=== PATIENT | female | born 1980 | race Caucasian/White ===

== ENCOUNTER 2017-07-30 16:57 | Emergency (ER) | payer BC ==
[2017-07-30] MEDS ORDERED: Aspirin 81 MG Tab.Chew PO ONE (17:01)
[2017-07-30] MEDS ORDERED: Ketorolac 30 MG/ML SDV IVPUSH ONE (17:01)
[2017-07-30] MEDS ORDERED: Sodium Chloride 0.9% 1,000 ML IV ONE (17:01)
--- NOTE | 2017-07-30 17:37 | EDM.PDOC ---
ED HPI GENERAL MEDICAL PROBLEM - General Chief Complaint: Cardiovascular Problem Stated Complaint: CHEST PAIN Time Seen by Provider: 07/30/17 17:15 Source of Information: Reports: Patient History Limitations: Reports: No Limitations - History of Present Illness INITIAL COMMENTS - FREE TEXT/NARRATIVE: HISTORY AND PHYSICAL: History of present illness: Patient is a 36-year-old female who presents with complaint of mid sternal chest pain. She states that her pain started approximately 3 days ago. Today, she felt some palpitations and increasing of chest pain intensity prior to arrival. Patient states that she takes Tylenol for these type of pain, the Tylenol "is not helping her". She smokes every day, and she started smoking 20 years ago. She denies any acute illness. She took her blood pressure today at home and she said it was "elevated". She rates her chest pain at 4/10. Patient states that her last menstrual cycle was 2 days ago (07/27/2017). She denies any fever, chills, coughing, shortness of breath, abdominal pain, nausea, vomiting, diarrhea or constipation. No personal history of heart disease. Review of systems: As per history of present illness and below otherwise all systems reviewed and negative. Past medical history: As per history of present illness and as reviewed below otherwise noncontributory. Surgical history: As per history of present illness and as reviewed below otherwise noncontributory. Social history: No reported history of drug or alcohol abuse. Family history: As per history of present illness and as reviewed below otherwise noncontributory. Physical exam: General: Well-developed and well-nourished 36-year-old female. Alert and oriented, not in acute distress but she is tearful. HEENT: Atraumatic, normocephalic, pupils equal and reactive bilaterally, negative for conjunctival pallor or scleral icterus, mucous membranes moist, throat clear, neck supple, nontender, trachea midline. No drooling or trismus noted. No meningeal signs Lungs: Clear to auscultation, breath sounds equal bilaterally, chest tenderness to anterior mid chest/sternum with palpation Heart: S1S2, regular rate and rhythm, tachycardia without overt murmur Abdomen: Soft, nondistended, nontender. Negative for masses or hepatosplenomegaly. Negative for costovertebral tenderness. Pelvis: Stable nontender. Genitourinary: Deferred. Rectal: Deferred. Skin: Intact, warm, dry. No lesions or rashes noted. Extremities: Atraumatic, moves all extremities per self without difficulty or deficits, negative for cords or calf pain. Neurovascular unremarkable. Neuro: Awake, alert, oriented. Cranial nerves II through XII unremarkable. Cerebellum unremarkable. Motor and sensory unremarkable throughout. Exam nonfocal. Notes: Patient has no previous history of heart disease. During our interview, she states "I know I'm not having a heart attack... I am more concerned about the lightheadness, palpitations and chest heaviness that I get when I exert myself" . She states she believes its related to her high blood pressure reading. History of DM Type 2 (but since loosing weight has been off her Metformin for 1 + year). She has had similar symptoms in the past, has had a HOLTER monitor and TSH checked multiple times. A cardiac workup will be done at this time. Her chest pain is reproducible with palpation, Toradol and be given IV. Lab work is unremarkable. CXR shows no evidence of pneumonia or infiltrate. We discussed the need for establishing care with a primary care provider as she currently does not have one here moving to we discussed that since her blood pressure is currently normal she should follow-up with them for further evaluation and management to discuss if she does need any antihypertensive medications. She should have her palpitations reevaluated as she may need a repeat Holter monitor. After her IV fluid she states she would like to be discharged to home as she feels improved. Discussed signs and symptoms that would prompt her to return to the emergency room. She is agreeable to plan of care. He denies any further questions at this time. Diagnostics: CBC, CMP, ECG, troponin, one view chest, Hgb A1C Therapeutics: NS Toradol Aspirin Impression: Nonspecific Chest Pain Plan: 1. Continue to stay well hydrated. Stop smoking. 2. Follow-up with your primary care provider as we discussed for further evaluation and management of her episodic high blood pressure. 3. Return to the ED as needed and as discussed. Definitive disposition and diagnosis as appropriate pending reevaluation and review of above. Onset: Today Upper Chest Pain Score (Numeric/FACES): 2 - Related Data Allergies Allergy/AdvReac Type Severity Reaction Status Date / Time codeine Allergy Rash Verified 07/30/17 17:05 Home Meds: Home Meds . [No Known Home Meds] 07/30/17 [History] Past Medical History - Past Health History Medical/Surgical History: Denies Medical/Surgical History Social & Family History - Tobacco Use Smoking Status *Q: Current Every Day Smoker Years of Tobacco use: 20 Packs/Tins Daily: 1 ED ROS GENERAL - Review of Systems Review Of Systems: ROS reveals no pertinent complaints other than HPI. ED EXAM, GENERAL - Physical Exam Exam: See Below (See dictation) Course - Vital Signs Last Recorded V/S: Last Vital Signs Temp 98.1 F 07/30/17 17:16 Pulse 101 H 07/30/17 19:01 Resp 16 07/30/17 19:01 BP 140/98 H 07/30/17 19:01 Pulse Ox 96 07/30/17 19:01 - Orders/Labs/Meds Orders: Active Orders 24 hr Category Date Time Status EKG Documentation Completion [RC] STAT Care 07/30/17 17:01 Active Chest 1V Frontal [CR] Stat Exams 07/30/17 17:01 Taken Labs: Laboratory Tests 07/30/17 07/30/17 07/30/17 Range/Units 17:10 17:10 17:10 WBC 6.96 (4.0-11.0) K/uL RBC 5.02 (4.30-5.90) M/uL Hgb 14.0 (12.0-16.0) g/dL Hct 42.4 (36.0-46.0) % MCV 84.5 (80.0-98.0) fL MCH 27.9 (27.0-32.0) pg MCHC 33.0 (31.0-37.0) g/dL RDW Std Deviation 43.7 (28.0-62.0) fl RDW Coeff of Gay 14 (11.0-15.0) % Plt Count 280 (150-400) K/uL MPV 9.40 (7.40-12.00) fL Neut % (Auto) 48.6 (48.0-80.0) % Lymph % (Auto) 36.8 (16.0-40.0) % [place] % (Auto) 9.1 (0.0-15.0) % Eos % (Auto) 4.6 (0.0-7.0) % Baso % (Auto) 0.9 (0.0-1.5) % Neut # (Auto) 3.4 (1.4-5.7) K/uL Lymph # (Auto) 2.6 H (0.6-2.4) K/uL [place] # (Auto) 0.6 (0.0-0.8) K/uL Eos # (Auto) 0.3 (0.0-0.7) K/uL Baso # (Auto) 0.1 (0.0-0.1) K/uL Nucleated RBC % 0.0 /100WBC Nucleated RBCs # 0 K/uL Sodium 141 (136-145) mmol/L Potassium 3.7 (3.5-5.1) mmol/L Chloride 106 (98-107) mmol/L Carbon Dioxide 29.2 (21.0-32.0) mmol/L BUN 13 (7.0-18.0) mg/dL Creatinine 1.0 (0.6-1.0) mg/dL Est Cr Clr Drug Dosing 90.61 mL/min Estimated GFR (MDRD) > 60.0 ml/min Glucose 114 H (74-106) mg/dL Hemoglobin A1c 5.5 (4.5-6.2) % Calcium 8.7 (8.5-10.1) mg/dL Total Bilirubin 0.4 (0.2-1.0) mg/dL AST 16 (15-37) IU/L ALT 23 (14-63) IU/L Alkaline Phosphatase 90 (46-116) U/L Troponin I < 0.050 (0.000-0.056) ng/mL Total Protein 7.1 (6.4-8.2) g/dL Albumin 3.5 (3.4-5.0) g/dL Globulin 3.6 H (2.0-3.5) g/dL Albumin/Globulin Ratio 1.0 L (1.3-2.8) Meds: Medications Discontinued Medications Generic Name Dose Route Start Last Admin Trade Name Freq PRN Reason Stop Dose Admin Aspirin 324 mg 07/30/17 17:01 07/30/17 17:22 Aspirin PO 07/30/17 17:02 324 mg ONETIME ONE Administration Sodium Chloride 1,000 mls @ 999 mls/hr 07/30/17 17:01 07/30/17 17:23 Normal Saline IV 07/30/17 18:01 999 mls/hr STAT ONE Administration Ketorolac Tromethamine 30 mg 07/30/17 17:01 07/30/17 17:22 Toradol IVPUSH 07/30/17 17:02 30 mg ONETIME ONE Administration Departure - Departure Time of Disposition: 18:43 Disposition: Home, Self-Care 01 Clinical Impression: Nonspecific chest pain Instructions: Nonspecific Chest Pain, [id number] Referrals: PCP,None [Primary Care Provider] - Forms: ED Department Discharge Additional Instructions: The following information is given to patients seen in the emergency department who are being discharged to home. This information is to outline your options for follow-up care. We provide all patients seen in our emergency department with a follow-up referral. The need for follow-up, as well as the timing and circumstances, are variable depending upon the specifics of your emergency department visit. If you don't have a primary care physician on staff, we will provide you with a referral. We always advise you to contact your personal physician following an emergency department visit to inform them of the circumstance of the visit and for follow-up with them and/or the need for any referrals to a consulting specialist. The emergency department will also refer you to a specialist when appropriate. This referral assures that you have the opportunity for follow-up care with a specialist. All of these measure are taken in an effort to provide you with optimal care, which includes your follow-up. Under all circumstances we always encourage you to contact your private physician who remains a resource for coordinating your care. When calling for follow-up care, please make the office aware that this follow-up is from your recent emergency room visit. If for any reason you are refused follow-up, please contact the [facility] Emergency Department at and asked to speak to the emergency department charge nurse. [facility] (Cherelle Mcgovern and/or Kimberly Pereira) [address] [place] [id number] 1. Continue to stay well hydrated. Stop smoking 2. Follow-up with your primary care provider as we discussed for further evaluation and management of her episodic high blood pressure. 3. Return to the ED as needed and as discussed. - My Orders Last 24 Hours: My Active Orders 07/30/17 17:01 EKG Documentation Completion [RC] STAT Chest 1V Frontal [CR] Stat - Assessment/Plan Last 24 Hours: My Active Orders 07/30/17 17:01 EKG Documentation Completion [RC] STAT Chest 1V Frontal [CR] Stat
[2017-07-30 17:44] LABS: CHLORIDE,CL 106 mmol/L (98-107); SODIUM,NA 141 mmol/L (136-145)
--- NOTE | 2017-08-02 09:54 | CR ---
EXAM DATE: 07/30/17 PATIENT'S AGE: 36 Patient: KARLO FAN Facility: [place], [place] Site . Site : [id number] Study: XRay Chest [id number] 5:35:44 PM Ordering Physician: Doctor Smith Final Report: HISTORY: Chest pain. FINDINGS: AP portable chest radiograph demonstrates EKG leads overlying the thorax. Cardiac silhouette is normal. Pulmonary vasculature is free of cephalization. No lobar consolidation or pleural effusion is seen. No pneumothorax. Bony structures are normal for age. IMPRESSION: No acute cardiopulmonary disease. Dictated by Dionna Oliva MD @ 07/30/2017 6:14:04 PM Dictated by: Dionna Oliva MD @ 07/30/2017 18:14:10 (Electronic Signature) Report Signed by Proxy. [facility]ITAL[facility]
== END 2017-07-30 18:59 | disposition home or self-care (01) ==
LOC: MW.ED 16:57
DX: R07.89 Other chest pain (principal); F17.210 Nicotine dependence, cigarettes, uncomplicated; Z88.5 Allergy status to narcotic agent
CPT/HCPCS: 71045; 80053; 83036; 84484; 85025; 93005; 96361; 96374; 99285; A9270; J1885; J7040; 99284

== ENCOUNTER 2018-11-16 13:27 | Emergency (ER) | payer BC ==
[2018-11-16] MEDS ORDERED: Sodium Chloride 0.9% 1,000 ML IV ONE (13:36)
--- NOTE | 2018-11-16 13:55 | EDM.PDOC ---
ED HPI GENERAL MEDICAL PROBLEM - General Chief Complaint: Cardiovascular Problem Stated Complaint: thyroid concern Time Seen by Provider: 11/16/18 13:29 Source of Information: Reports: Patient History Limitations: Reports: No Limitations - History of Present Illness INITIAL COMMENTS - FREE TEXT/NARRATIVE: HISTORY AND PHYSICAL: History of present illness: Patient is a 38-year-old female presents to the ED today with concern of dizziness over the last 2 weeks. Patient states she is not currently having dizziness stable in the past illnesses She has had a thyroid issue. Patient states she is not on thyroid medications and has not followed with the primary care provider for her thyroid. Patient denies any chest pain or shortness of breath. Patient denies any health history or any other symptoms or concerns. Patient denies fever, chills, chest pain, shortness of breath, or cough. Denies headache, neck stiff ness, change in vision, syncope, or near syncope. Denies nausea, vomiting, abdominal pain, diarrhea, constipation, or dysuria. Has not noted any blood in urine or stool. Patient has been eating and drinking appropriately. Review of systems: As per history of present illness and below otherwise all systems reviewed and negative. Past medical history: As per history of present illness and as reviewed below otherwise noncontributory. Surgical history: As per history of present illness and as reviewed below otherwise noncontributory. Social history: See social history for further information Family history: As per history of present illness and as reviewed below otherwise noncontributory. Physical exam: General: Patient is alert, oriented, and in no acute distress. Patient laying comfortably on exam table. HEENT: Atraumatic, normocephalic, pupils equal and reactive bilaterally, negative for conjunctival pallor or scleral icterus, mucous membranes moist, TMs normal bilaterally, throat clear, neck supple, nontender, trachea midline. No drooling or trismus noted. No meningeal signs. No hot potato voice noted. Lungs: Clear to auscultation, breath sounds equal bilaterally, chest nontender. Heart: S1S2, regular rate and rhythm without overt murmur Abdomen: Soft, nondistended, nontender. Negative for masses or hepatosplenomegaly. Negative for costovertebral tenderness. Pelvis: Stable nontender. Genitourinary: Deferred. Rectal: Deferred. Skin: Intact, warm, dry. No lesions or rashes noted. Extremities: Atraumatic, negative for cords or calf pain. Neurovascular unremarkable. Neuro: Awake, alert, oriented. Cranial nerves II through XII unremarkable. Cerebellum unremarkable. Motor and sensory unremarkable throughout. Exam nonfocal. Notes: Discussed the importance for follow-up with a primary care provider. Voices understanding and is agreeable to plan of care. Denies any further questions or concerns at this time. Diagnostics: CBC, CMP, UA, urine hCG, TSH, orthostatic vitals (Patient declines EKG, CXR and troponin. Discussed the risks versus benefits of this and expresses understanding) Therapeutics: NS Prescription: None Impression: Medical screening exam Plan: 1. Encourage small but frequent sips of fluid to prevent dehydration. 2. You can alternate ibuprofen and Tylenol as directed for pain and discomfort. 3. Follow up with her primary care provider as discussed. Return to the ED as needed and as discussed. Definitive disposition and diagnosis as appropriate pending reevaluation and review of above. - Related Data Allergies Allergy/AdvReac Type Severity Reaction Status Date / Time codeine Allergy Rash Verified 11/16/18 13:37 Home Meds: Home Meds . 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 ED EXAM, GENERAL - Physical Exam Exam: See Below (See dictation) Course - Vital Signs Last Recorded V/S: Last Vital Signs Temp 96.2 F 11/16/18 13:34 Pulse 141 H 11/16/18 13:34 Resp 18 11/16/18 13:34 BP 151/101 H 11/16/18 13:34 Pulse Ox 98 11/16/18 13:34 Orthostatic Blood Pressure [ 161/105 Standing] Orthostatic Blood Pressure [ 155/105 Sitting] Orthostatic Blood Pressure [ 136/86 Supine] - Orders/Labs/Meds Orders: Active Orders 24 hr Category Date Time Status EKG Documentation Completion [RC] STAT Care 11/16/18 13:36 Active Orthostatic Vital Signs [RC] ASDIRECTED Care 11/16/18 13:40 Active Labs: Laboratory Tests 11/16/18 11/16/18 11/16/18 Range/Units 13:50 13:50 14:04 WBC 8.41 (4.0-11.0) K/uL RBC 4.91 (4.30-5.90) M/uL Hgb 13.8 (12.0-16.0) g/dL Hct 42.8 (36.0-46.0) % MCV 87.2 (80.0-98.0) fL MCH 28.1 (27.0-32.0) pg MCHC 32.2 (31.0-37.0) g/dL RDW Std Deviation 47.1 (28.0-62.0) fl RDW Coeff of Gay 15 (11.0-15.0) % Plt Count 335 (150-400) K/uL MPV 9.60 (7.40-12.00) fL Neut % (Auto) 55.6 (48.0-80.0) % Lymph % (Auto) 31.5 (16.0-40.0) % [place] % (Auto) 8.3 (0.0-15.0) % Eos % (Auto) 3.6 (0.0-7.0) % Baso % (Auto) 1.0 (0.0-1.5) % Neut # (Auto) 4.7 (1.4-5.7) K/uL Lymph # (Auto) 2.7 H (0.6-2.4) K/uL [place] # (Auto) 0.7 (0.0-0.8) K/uL Eos # (Auto) 0.3 (0.0-0.7) K/uL Baso # (Auto) 0.1 (0.0-0.1) K/uL Nucleated RBC % 0.0 /100WBC Nucleated RBCs # 0 K/uL Sodium 141 (136-145) mmol/L Potassium 3.9 (3.5-5.1) mmol/L Chloride 104 (98-107) mmol/L Carbon Dioxide 28.6 (21.0-32.0) mmol/L BUN 8 (7.0-18.0) mg/dL Creatinine 0.9 (0.6-1.0) mg/dL Est Cr Clr Drug Dosing 98.76 mL/min Estimated GFR (MDRD) > 60.0 ml/min Glucose 109 H (74-106) mg/dL Calcium 8.9 (8.5-10.1) mg/dL Total Bilirubin 0.2 (0.2-1.0) mg/dL AST 14 L (15-37) IU/L ALT 21 (14-63) IU/L Alkaline Phosphatase 89 (46-116) U/L Total Protein 7.6 (6.4-8.2) g/dL Albumin 3.6 (3.4-5.0) g/dL Globulin 4.0 (2.6-4.0) g/dL Albumin/Globulin Ratio 0.9 (0.9-1.6) TSH 3rd Generation 2.41 (0.36-3.74) uIU/mL Urine Color YELLOW Urine Appearance CLEAR Urine pH 6.0 (5.0-8.0) Ur Specific [place] <= 1.005 (1.001-1.035) Urine Protein NEGATIVE (NEGATIVE) mg/dL Urine Glucose (UA) NEGATIVE (NEGATIVE) mg/dL Urine Ketones NEGATIVE (NEGATIVE) mg/dL Urine Occult Blood TRACE-LYSED H (NEGATIVE) Urine Nitrite NEGATIVE (NEGATIVE) Urine Bilirubin NEGATIVE (NEGATIVE) Urine Urobilinogen 0.2 (<2.0) EU/dL Ur Leukocyte Esterase NEGATIVE (NEGATIVE) Urine RBC 0-1 (0-2/HPF) Urine WBC 0-2 (0-5/HPF) Ur Epithelial Cells FEW (NONE-FEW) Urine Bacteria RARE (NEGATIVE) Urine Mucus LIGHT (NONE-MOD) Urine HCG, Qual (NEGATIVE) 11/16/18 Range/Units 14:04 WBC (4.0-11.0) K/uL RBC (4.30-5.90) M/uL Hgb (12.0-16.0) g/dL Hct (36.0-46.0) % MCV (80.0-98.0) fL MCH (27.0-32.0) pg MCHC (31.0-37.0) g/dL RDW Std Deviation (28.0-62.0) fl RDW Coeff of Gay (11.0-15.0) % Plt Count (150-400) K/uL MPV (7.40-12.00) fL Neut % (Auto) (48.0-80.0) % Lymph % (Auto) (16.0-40.0) % [place] % (Auto) (0.0-15.0) % Eos % (Auto) (0.0-7.0) % Baso % (Auto) (0.0-1.5) % Neut # (Auto) (1.4-5.7) K/uL Lymph # (Auto) (0.6-2.4) K/uL [place] # (Auto) (0.0-0.8) K/uL Eos # (Auto) (0.0-0.7) K/uL Baso # (Auto) (0.0-0.1) K/uL Nucleated RBC % /100WBC Nucleated RBCs # K/uL Sodium (136-145) mmol/L Potassium (3.5-5.1) mmol/L Chloride (98-107) mmol/L Carbon Dioxide (21.0-32.0) mmol/L BUN (7.0-18.0) mg/dL Creatinine (0.6-1.0) mg/dL Est Cr Clr Drug Dosing mL/min Estimated GFR (MDRD) ml/min Glucose (74-106) mg/dL Calcium (8.5-10.1) mg/dL Total Bilirubin (0.2-1.0) mg/dL AST (15-37) IU/L ALT (14-63) IU/L Alkaline Phosphatase (46-116) U/L Total Protein (6.4-8.2) g/dL Albumin (3.4-5.0) g/dL Globulin (2.6-4.0) g/dL Albumin/Globulin Ratio (0.9-1.6) TSH 3rd Generation (0.36-3.74) uIU/mL Urine Color Urine Appearance Urine pH (5.0-8.0) Ur Specific [place] (1.001-1.035) Urine Protein (NEGATIVE) mg/dL Urine Glucose (UA) (NEGATIVE) mg/dL Urine Ketones (NEGATIVE) mg/dL Urine Occult Blood (NEGATIVE) Urine Nitrite (NEGATIVE) Urine Bilirubin (NEGATIVE) Urine Urobilinogen (<2.0) EU/dL Ur Leukocyte Esterase (NEGATIVE) Urine RBC (0-2/HPF) Urine WBC (0-5/HPF) Ur Epithelial Cells (NONE-FEW) Urine Bacteria (NEGATIVE) Urine Mucus (NONE-MOD) Urine HCG, Qual NEGATIVE (NEGATIVE) Meds: Medications Discontinued Medications Generic Name Dose Route Start Last Admin Trade Name Freq PRN Reason Stop Dose Admin Sodium Chloride 1,000 mls @ 999 mls/hr 11/16/18 13:36 11/16/18 14:23 Normal Saline IV 11/16/18 14:36 999 mls/hr BOLUS ONE Administration Departure - Departure Time of Disposition: 14:51 Disposition: Home, Self-Care 01 Clinical Impression: Encounter for medical screening examination Referrals: Thomas Lopez MD [Primary Care Provider] - Forms: ED Department Discharge Additional Instructions: The following information is given to patients seen in the emergency department who are being discharged to home. This information is to outline your options for follow-up care. We provide all patients seen in our emergency department with a follow-up referral. The need for follow-up, as well as the timing and circumstances, are variable depending upon the specifics of your emergency department visit. If you don't have a primary care physician on staff, we will provide you with a referral. We always advise you to contact your personal physician following an emergency department visit to inform them of the circumstance of the visit and for follow-up with them and/or the need for any referrals to a consulting specialist. The emergency department will also refer you to a specialist when appropriate. This referral assures that you have the opportunity for follow-up care with a specialist. All of these measure are taken in an effort to provide you with optimal care, which includes your follow-up. Under all circumstances we always encourage you to contact your private physician who remains a resource for coordinating your care. When calling for follow-up care, please make the office aware that this follow-up is from your recent emergency room visit. If for any reason you are refused follow-up, please contact the [facility] Emergency Department at and asked to speak to the emergency department charge nurse. [facility] [address] [place] [address] [facility] [address] [place] [address] 1. Encourage small but frequent sips of fluid to prevent dehydration. 2. You can alternate ibuprofen and Tylenol as directed for pain and discomfort. 3. Follow up with her primary care provider as discussed. Return to the ED as needed and as discussed. - My Orders Last 24 Hours: My Active Orders 11/16/18 13:36 EKG Documentation Completion [RC] STAT 11/16/18 13:40 Orthostatic Vital Signs [RC] ASDIRECTED - Assessment/Plan Last 24 Hours: My Active Orders 11/16/18 13:36 EKG Documentation Completion [RC] STAT 11/16/18 13:40 Orthostatic Vital Signs [RC] ASDIRECTED
[2018-11-16 14:36] LABS: BLOOD UREA NITROGEN,BUN 8 mg/dL (7.0-18.0); CARBON DIOXIDE,CO2 28.6 mmol/L (21.0-32.0); CHLORIDE,CL 104 mmol/L (98-107); GLUCOSE RANDOM 109 mg/dL (74-106); POTASSIUM,K 3.9 mmol/L (3.5-5.1); SODIUM,NA 141 mmol/L (136-145)
== END 2018-11-16 15:14 | disposition home or self-care (01) ==
LOC: MW.ED 13:27
DX: Z13.9 Encounter for screening, unspecified (principal); Z88.5 Allergy status to narcotic agent; F17.210 Nicotine dependence, cigarettes, uncomplicated
CPT/HCPCS: 36415; 80053; 81001; 81025; 84443; 85025; 96360; 99284; J7040; 99283